=== PATIENT | female | born 1985 | race Caucasian/White ===

== ENCOUNTER 2016-06-16 07:44 | Inpatient (IN) | payer BC, OTHER ==
[~2016-06-16] VITALS: Ht 162.6 cm; Wt 56.7 kg
[~2016-06-16 07:44] MED LIST: ACYC400T PO; HYDR-3895 PO; Ibuprofen PO; LIDO35.4 TOP
--- NOTE | 2016-06-16 11:55 | NUR ---
Admission note Pt arrived on unit from home. Pt is refusing to give nurse information at this time. Pt states "I already told Dr Huntley everything, I just want to sleep". Pt weight is: 125 pounds. Pt states she is 5'4'' VS upon admission are: 84/46 HR 55 R 16 Temp: 97.6 SpO2: 99% on RA. Dr Huntley is aware, stated to ask pt if she would consent to IVF, pt refused and started "I just want to sleep". Explained benefits, pt continued to refuse. Gave pt bottles of water. Pt left to sleep in her bed. Bed is locked in a low position. Call light within reach, side rails up x 2. All needs addressed at this time. Addendum: 06/16/16 at 1603 by OLIVIER MCMAHON RN Information obtained from prior medical records, Dr Huntley's Note and from patient: Pt skin is intact, no open wounds noted. ENROLLMENT COORDINATOR completed body check. Urine collected for drug screen and showed + for opiates, benzo, methamphetamines, and marijuana. Pt continues to be sleepy and refusing/unable to answer questions d/t drowsiness. Pt reports NKA, full code, regular diet. Pt states she does not have PCP, denies hospitalizations within past 30 days. Substance use history, per Dr Huntley report. Xanax- uses 1-2mg PO on occasion, last use was 06/15/16 in the evening. Been using since 04/25/16. Heroin - pt reports She started to use heroin 2 yrs ago, with multiple attempts to stay sober, relapsed immediately after discharge from [facility] on 04/25/16. Pt reports using 0.5G-1G of heroin inh daily, last use was 06/14/16, unknown amount. Methamphetamine - per pt, she first tried methamphetamine 12 years ago, relapsed on 04/25/16. Has been using an unknown amount, last use 06/15/16. Pt reported smoking 1 pack of cigarettes a day. Treatment history: Pt refused to discuss. Pt has been to [facility] several times, pt did not go to treatment after her last admission. Pt reports hx of seizures in 2000. Pt did not bring any home meds and denies taking any medications at home No SI/HI reported. Pt initial COWS of [address] Huntley is aware of her admission and ordered PRN ativan and PRN subutex to manage her s/s of withdrawal.
[2016-06-16 12:00] VITALS: BP 84/46
[2016-06-16] MEDS ORDERED: diphenhydrAMINE 50 MG CAPSULE PO PRN (12:15)
[2016-06-16] MEDS ORDERED: MAGNESIUM HYDROXIDE 30 ML LIQUID UDC PO PRN (12:15)
[2016-06-16] MEDS ORDERED: ACETAMINOPHEN 325 MG TABLET PO PRN (12:15)
[2016-06-16] MEDS ORDERED: LORAZEPAM 2 MG/1 ML VIAL IM PRN (12:15)
[2016-06-16] MEDS ORDERED: LOPERAMIDE HCL 2 MG CAPSULE PO PRN ×2 (12:15)
[2016-06-16] MEDS ORDERED: CLONIDINE HCL 0.1 MG TABLET PO PRN (12:15)
[2016-06-16] MEDS ORDERED: MIRALAX 17 GM POWD.PACK PO PRN (12:15)
[2016-06-16] MEDS ORDERED: PROMETHAZINE HCL 25 MG/1 ML VIAL IM PRN (12:15)
[2016-06-16] MEDS ORDERED: BUPRENORPHINE HCL 2 MG TAB.SUBL SL PRN (12:15)
[2016-06-16] MEDS ORDERED: LORAZEPAM 1 MG TABLET PO PRN ×2 (12:15)
[2016-06-16] MEDS ORDERED: MAG HYDROX/AL HYDROX/SIMETH 30 ML LIQUID UDC PO PRN (12:15)
[2016-06-16] MEDS ORDERED: ONDANSETRON ODT 4 MG TAB.RAPDIS SL PRN (12:15)
[2016-06-16 12:25] LABS: *URINE HCG, QUAL NEGATIVE (NEGATIVE)
[2016-06-16 12:36] LABS: *AMPHETAMINE, URINE POSITIVE (NEGATIVE); *BARBITURATE, URINE NEGATIVE (NEGATIVE); *CANNABINOID, URINE POSITIVE (NEGATIVE); *COCCAINE, URINE NEGATIVE (NEGATIVE); *OPIATE, URINE POSITIVE (NEGATIVE); *PHENCYCLIDINE SCREEN,URINE NEGATIVE (NEGATIVE)
[2016-06-16] MEDS: METHOCARBAMOL 750 MG TABLET PO PRN (14:45)
--- NOTE | 2016-06-16 14:45 | NUR ---
PRN administration Pt refused labs, states "I want meds first". Pt BP is 92/46 HR 70. COWS 7, CIWA 8. Dr Huntley notified. Administered: vistaril, robaxin and bentyl for her anxiety, muscle aches and stomach cramps. Pt refused motrin. All other needs met, will continue to monitor pt.
[2016-06-16] MEDS: HYDROXYZINE PAMOATE 25 MG CAPSULE PO PRN ×2 (14:46→22:44)
[2016-06-16] MEDS: DICYCLOMINE HCL 20 MG TABLET PO PRN ×2 (14:46→22:44)
--- NOTE | 2016-06-16 15:45 | NUR ---
Reassessment Pt is sleeping in her bed, respirations are even and unlabored. Will continue to monitor pt.
[2016-06-16 16:00] VITALS: BP 85/44
--- NOTE | 2016-06-16 17:38 | NUR ---
MD communication Pt BP noted to be 85/44 HR 53 SpO2 99% on RA. Pt is easily awoken and was able to eat some snacks. Fluids encouraged. Dr Huntley is aware. NNO at this time.
--- NOTE | 2016-06-16 19:13 | NUR ---
End of shift note Pt was admitted for benzo and opiate withdrawal. Pt has a PMH of anxiety and a withdrawal induced seizure. Pt slept most of the shift. Pt had PRN robaxin, vistaril and bentyl with relief. Pt BP and HR remains low. Dr Huntley is aware with NNO. SBAR report endorsed to oncoming shift. Pt is on a regular diet, full code and has NKA. Bed is locked in a low position, call light within reach and side rails up x 2.
[2016-06-16 20:00] VITALS: BP 98/55
--- NOTE | 2016-06-16 20:00 | NUR ---
Start of Shift Pt is a 31 year old female admitted on 06/20/2016 for Benzo/Opiate withdrawal, PRN medications available. Pt relapsed on 05/05/2016, reported using Xanax 1-2mg PO occasionally, Heroin inh 0.5-1g/daily, Methamphetamine and Marijuana. PMH anxiety and seizure in 2000 withdrawal induced. Upon assessment, pt is arousable to touch, reports muscle aches throughout body, respirations even and unlabored, denies SOB/chest pain, denies n/v/d or constipation, skin flushed/warm , clammy and intact, bowel sounds active x4, abdomen soft. BP 98/55, pulse 64, respirations 14 , SpO2 97%, temp 98.4. Safety measures in place, call light within reach, side rails up x2, bed locked and in low position. Will continue to monitor.
[2016-06-16] MEDS: IBUPROFEN 600 MG TABLET PO PRN (22:44)
--- NOTE | 2016-06-16 22:44 | NUR ---
PRN Administration Pt reported abdominal cramping, body aches, anxiety. Pt stated, "I just want to sleep, please" Bentyl 20mg PRN, Motrin 600mg PRN, Vistaril 50mg PRN and Benadryl 50mg PRN administered. Safety measures in place, call light within reach, side rails up x2, bed locked and in low position. Will continue to monitor.
--- NOTE | 2016-06-16 23:44 | NUR ---
PRN Reassessment Pt is sleeping, respirations even and unlabored. Safety measures in place, call light within reach, side rails up x2, bed locked and in low position. Will continue to monitor.
[2016-06-17] VITALS: BP 107/55
--- NOTE | 2016-06-17 | NUR ---
Vital Signs BP 107/55, pulse 84, respirations 14, SpO2 98%, temp 98.1, no pain rated 0/10 CIWA/COWS deferred d/t pt sleeping, to asses while awake as ordered. Respirations even and unlabored, no s/s of distress noted. Safety measures in place, call light within reach, side rails up x2, bed locked and in low position. Will continue to monitor.
[2016-06-17 04:00] VITALS: BP 108/63
--- NOTE | 2016-06-17 04:00 | NUR ---
Vital Signs BP 108/63, pulse 56, respirations 12, SpO2 96%, temp 98.3, no pain rated 0/10 CIWA/COWS deferred d/t pt sleeping, to asses while awake as ordered. Respirations even and unlabored, no s/s of distress noted. Safety measures in place, call light within reach, side rails up x2, bed locked and in low position. Will continue to monitor.
--- NOTE | 2016-06-17 07:00 | NUR ---
End of Shift Pt is a 31 year old female admitted on 06/20/2016 for Benzo/Opiate withdrawal, PRN medications available. Pt relapsed on 05/05/2016, reported using Xanax 1-2mg PO occasionally, Heroin inh 0.5-1g/daily, Methamphetamine and Marijuana. PMH anxiety and seizure in 2000 withdrawal induced. During, pt arousable to touch, reported abdominal cramping, body aches, anxiety - Bentyl 20mg PRN, Motrin 600mg PRN, Vistaril 50mg PRN administered. Fluids encouraged, pt slept all throughout shift after administration of Benadryl 50mg PRN at 2244. COW 7 and CIWA 8. VS remain low, VS at 0400: BP 108/63, pulse 56 , respirations 12, SpO2 96%, temp 98.3. Pt slept for 7 hours, intake of 1000 ml PO and voids x2. Safety measures in place, call light within reach, side rails up x2, bed locked and in low position. Endorsed to day shift nurse.
--- NOTE | 2016-06-17 07:40 | NUR ---
START OF SHIFT Pt is a 31 yr old female, AA&Ox3. Pt was admitted on 06/16/16 for Benzo/Opiate dependence and is on PRN's for s/s of w/d. Pt is full code, regular diet and NKA. Pt reports PMH of Anxiety and Seizures. Pt received Bentyl PRN, Vistaril PRN, Motrin PRN and Benadryl PRN during the night. Medication was effective. Pt slet for 7 hrs. Last COWS score was 8 and CIWA score was 8. Pt is currently in bed resting with respirations even and unlabored. No acute distress noted. Skin is intact, warm and moist to touch. Pt denies any n/v at this time. Pt is on fall and seizure precautions. Bed kept in low position and locked with side rails up x2. Call light is within reach. Will continue to monitor.
[2016-06-17 08:00] VITALS: BP 91/50
[2016-06-17] MEDS ORDERED: TUBERCULIN,PURIF.PROT.DERIV. 5 TU/0.1 ML TEST ID ONE ×2 (09:00→21:00)
[2016-06-17] MEDS: METHOCARBAMOL 750 MG TABLET PO PRN ×2 (09:26→20:20)
[2016-06-17] MEDS: HYDROXYZINE PAMOATE 25 MG CAPSULE PO PRN ×2 (09:26→16:51)
[2016-06-17] MEDS: MULTIVITAMINS,THERAPEUTIC TABLET PO SCH (09:26)
[2016-06-17] MEDS: IBUPROFEN 600 MG TABLET PO PRN ×2 (09:26→16:51)
--- NOTE | 2016-06-17 09:26 | NUR ---
PRN MEDICATION/ REFUSED PPD Pt refused to have PPD done at this time and requested to be schedule at bedtime. Pt was offered CXR to rule out TB but refused CXR. MD is made aware with new order for Tuberculin at HS, noted and carried out. Pt c/o anxiety, muscle aching/spasms 09/01. Facial grimacing is observed. Vistaril 50mg PO PRN, Robaxin 750mg PO PRN, Motrin 600mg PO PRN was given as ordered. Medication abraham well. Encouraged increase fluid intake. Will continue to monitor.
--- NOTE | 2016-06-17 10:26 | NUR ---
PRN RE-ASSESSMENT Motrin PRN, Robaxin PRN, and Vistaril PRN was effective. Pt is in bed resting with respirations even and unlabored. No acute distress noted. Safety precautions observed. Call light is within reach. Will continue to monitor.
[2016-06-17 12:00] VITALS: BP 90/51
[2016-06-17 16:14] VITALS: BP 85/51
[2016-06-17] MEDS ORDERED: BUPRENORPHINE HCL 2 MG TAB.SUBL SL PRN (17:30)
[2016-06-17] MEDS ORDERED: LORAZEPAM 1 MG TABLET PO PRN ×2 (17:30)
--- NOTE | 2016-06-17 19:10 | NUR ---
END OF SHIFT Pt is a 31 yr old female, AA&Ox3. Pt was admitted on 06/16/16 for Benzo/Opiate dependence and is on PRN's for s/s of w/d. Pt is full code, regular diet and NKA. Pt reports PMH of Anxiety and Seizures. Pt has been observed with increase drowsiness throughout the day. Pt refused to attend any group sessions or activities. Pt did receive Motrin PRN at 0926 and 1651, Vistaril PRN 0926 and 1651 and Robaxin PRN at 0926 for anxiety and muscle aching/spasms. Medication was effective. Last COWS score was 2 and CIWA score was 2 at 1600. Pt c/o weakness and fatigue. No acute distress noted. VS are WNL. Skin is intact, warm and moist to touch. Pt denies any n/v at this time. Pt is on fall and seizure precautions. Bed kept in low position and locked with side rails up x2. Call light is within reach.
--- NOTE | 2016-06-17 19:30 | NUR ---
START OF SHIFT NOTE: Patient is a 31 y/o female admitted on 06/16/16 for Opiate & Benzo dependence. Patient with past medical history of Anxiety & Sieizure in 2001 d/t withdrawal. Patient is on a regular diet with no known food and drug allergies. Full Code status. Seizure and Fall precautions. Patient is on PRN Ativan & Subutex for withdrawals. Skin intact. Last COWS is 2 CIWA 2. Pt was given PRN Vistaril x2, Motrin x2 & Robaxin during day shift. Patient is alert & oriented x4. No shortness of breath noted. Respiration even & unlabored. Abdomen soft & non-distended. Bowel sounds active in all four quadrants. No nausea/vomiting noted. Patient complains of abdominal cramps, sweating, chills, 4/10 body aches and anxiety. No hallucinations noted. Patient denies SI/HI. No bilateral hand tremors noted. Safety precautions are in place. Bed locked in lowest position. Both side rails up. Call light within pts reach. Will continue to monitor patient.
[2016-06-17 20:00] VITALS: BP 92/51
[2016-06-17] MEDS: GABAPENTIN 300 MG CAPSULE PO SCH (20:20)
[2016-06-17] MEDS: DICYCLOMINE HCL 20 MG TABLET PO PRN (20:20)
--- NOTE | 2016-06-17 20:20 | NUR ---
PRN Bentyl & Robaxin Patient complains of 4/10 body aches & stomach cramps. PRN Bentyl & Robaxin given as ordered. Will continue to monitor.
[2016-06-17 20:36] LABS: HEMATOCRIT 43.7 % (37.0-47.0); HEMOGLOBIN 14.4 g/dL (12.0-16.0); MEAN CORPUSCULAR HEMOGLOBIN 28.2 uug (27.0-31.0); MEAN CORPUSCULAR HGB CONC 33 g/dL (32.0-37.0); MEAN CORPUSCULAR VOLUME 85.9 fL (81.0-99.0); PLATELET COUNT (AUTO) 343 K/uL (150-450); RED BLOOD CELL COUNT(AUTO) 5.09 MIL/uL (4.20-5.40); WHITE BLOOD COUNT (AUTO) 7.7 K/uL (4.0-11.2)
[2016-06-17] MEDS ORDERED: TRAZODONE 100 MG TABLET PO PRN (20:45)
[2016-06-17] MEDS ORDERED: TRAZODONE 100 MG TABLET ONE (20:48)
[2016-06-17 20:52] LABS: ETHANOL < 3 MG/DL (0-0)
[2016-06-17 20:54] LABS: ALANINE AMINOTRANSFERASE 12 U/L (14-59); ALKALINE PHOSPHATASE 52 U/L (50-136); ASPARTATE AMINOTRANSFERASE 14 U/L (15-37); BAND % (MANUAL) 1 % (0-10); BILIRUBIN,TOTAL 0.4 mg/dL (0.2-1.0); CARBON DIOXIDE 29 mmol/L (21-32); CHLORIDE 103 mmol/L (98-107); CREATININE 1.1 mg/dL (0.6-1.3); EOSINOPHILS % (MANUAL) 1 % (0-8); GFR 59 mL/min (>60); GLUCOSE 96 mg/dL (74-106); LYMPHOCYTES % (MANUAL) 30 % (20-40); MONOCYTES % (MANUAL) 6 % (2-10); NEUTROPHILS % (MANUAL) 62 % (42-75); PLATELET ESTIMATE ADEQUATE; POTASSIUM 3.4 mmol/L (3.5-5.1); SODIUM SERUM 141 mmol/L (136-145); TOTAL PROTEIN, SERUM 7.6 g/dL (6.4-8.2); UREA NITROGEN, BLOOD 13 mg/dL (7-18)
--- NOTE | 2016-06-17 20:58 | NUR ---
PRN Trazodone Patient complains of insomnia. PRN Trazodone given as ordered. Will monitor for effectiveness of medication.
[2016-06-17 21:05] LABS: THYROID STIMULATING HORMONE 0.366 mIU/mL (0.358-3.740)
[2016-06-17 21:09] LABS: HIV-1 p24 ANTIGEN NON REACTIVE (NONREACTIVE); HIV-1/2 ANTIBODY NON REACTIVE (NONREACTIVE)
--- NOTE | 2016-06-17 21:20 | NUR ---
Prn Reassessment Patient verbalized relief from body aches and stomach cramps. PRN medication effective. Pt lying in bed and appears comfortable. Will continue to monitor patient.
--- NOTE | 2016-06-17 21:58 | NUR ---
PRN trazodone reassessment Patient asleep in bed and appears comfortable. PRN medication effective. No shortness of breath noted. Will continue to monitor.
[2016-06-17] MEDS ORDERED: POTASSIUM CHLORIDE 10 MEQ CAPSULE.SA PO ONE (22:00)
[2016-06-17] MEDS ORDERED: POTASSIUM CHLORIDE 10 MEQ CAPSULE.SA ONE (22:07)
[2016-06-18] VITALS: BP 90/50
--- NOTE | 2016-06-18 07:10 | NUR ---
END OF SHIFT NOTE: Patient is a 31 y/o female admitted on 06/16/16 for Opiate & Benzo dependence. Patient with past medical history of Anxiety & Sieizure in 2000 d/t withdrawal. Patient is on a regular diet with no known food and drug allergies. Full Code status. Seizure and Fall precautions. Patient is on PRN Ativan & Subutex for withdrawals. Skin intact. Last COWS 4 CIWA 4. Pt was given PRN Robaxin, Bentyl and Trazodone and were effective. Potassium of 3.4 noted and was replaced as ordered. Pt remained stable and vitals remains WNL. Pt has been sleeping throughout the night. Pt slept for a total of 9 hours. Pt consumed 500ml of fluids. Voided 2x with no bowel movement. All needs attended & met. Safety precautions are in place. Will endorse pt to day shift nurse.
--- NOTE | 2016-06-18 07:45 | NUR ---
START OF SHIFT Pt is a 31 yr old female, AA&Ox3. Pt was admitted on 06/16/16 for Benzo/Opiate dependence and is on PRN's for s/s of w/d. Pt is full code, regular diet and NKA. Pt reports PMH of Anxiety and Seizures. Pt received Trazodone PRN, Robaxin PRN and Bentyl PRN during the night. Medication was effective. Pt slept for 9 hrs. Last COWS score was 4 and CIWA score was 4. Pt is currently in bed resting with respirations even and unlabored. No acute distress noted. Skin is intact, warm and moist to touch. Pt denies any n/v at this time. Pt is on fall and seizure precautions. Bed kept in low position and locked with side rails up x2. Call light is within reach. Will continue to monitor.
[2016-06-18 08:00] VITALS: BP 100/57
[2016-06-18] MEDS: GABAPENTIN 300 MG CAPSULE PO SCH ×3 (08:45→21:28)
[2016-06-18] MEDS: MULTIVITAMINS,THERAPEUTIC TABLET PO SCH (08:45)
[2016-06-18 12:00] VITALS: BP 105/61
[2016-06-18 16:00] VITALS: BP 106/67
--- NOTE | 2016-06-18 19:10 | NUR ---
END OF SHIFT Pt is a 31 yr old female, AA&Ox3. Pt was admitted on 06/16/16 for Benzo/Opiate dependence and is on PRN's for s/s of w/d. Pt is full code, regular diet and NKA. Pt reports PMH of Anxiety and Seizures. Pt has been observed with increase drowsiness throughout the day and remained in bed. Pt refused to attend any group sessions or activities. No PRN's were given during the day. Last COWS score was 2 and CIWA score was 2 at 1600. Pt c/o weakness and fatigue. No acute distress noted. VS are WNL. Skin is intact, warm and moist to touch. Pt denies any n/v at this time. Pt is on fall and seizure precautions. Bed kept in low position and locked with side rails up x2. Call light is within reach.
[2016-06-18] MEDS ORDERED: BUPRENORPHINE HCL 2 MG TAB.SUBL SL ONE ×2 (19:15→22:00)
[2016-06-18 20:00] VITALS: BP 116/74
--- NOTE | 2016-06-18 20:00 | NUR ---
START OF SHIFT NOTE PATIENT IS A 31 YEAR OLD FEMALE, ADMITTED ON 06/16/16 FOR BENZO/OPIATE WITHDRAWAL. PATIENT IS FULL CODE, REGULAR DIET AND NO KNOWN ALLERGY. PATIENT REPORTS PMH OF ANXIETY AND SEIZURE 2000 (W/D). PATIENT IS ON XANAX 1-2 MG PO OCCASIONALLY, HEROIN 0.5-1 GRAM INHALATION DAILY AND METH UNKNOWN AMOUNT . PATIENT RELAPSED 05/05/16. PATIENT IS ON PRN ATIVAN. PATIENT WILL START SUBUTEX TODAY AT 1915 AND 2100, THEN TOMORROW AT 0900. PATIENT DID NOT REQUIRE ANY PRN MEDICATION DURING THE DAY. LAST CIWA 2 AND COWS 2. PATIENT IN ROOM, RESTING, PATIENT REPORTS SHE'S TIRED, ANXIOUS, STUFFY NOSE, ABDOMINAL CRAMPING, NO N/V. PATIENT STATES SHE ATTENDED GROUPS BUT UNABLE TO STAY DUE TO HER WITHDRAWAL SYMPTOMS . SAFETY MEASURES IN PLACE. CALL LIGHT IN REACH. WILL CONTINUE TO MONITOR.
[2016-06-18] MEDS: QUETIAPINE FUMARATE 100 MG TABLET PO SCH (21:28)
[2016-06-19] VITALS: BP 106/72
--- NOTE | 2016-06-19 04:00 | NUR ---
VS/CIWA/COWS PATIENT PREVIOUSLY REQUESTED NOT TO WAKE HER UP FOR VS . UNABLE TO COMPLETE CIWA/COWS ASSESSMENTS. RESPIRATION EVEN AND UNLABORED RR 14. NO S/S OF DISTRESS. SAFETY MEASURES IN PLACE. CALL LIGHT IN REACH. WILL CONTINUE TO MONITOR.
--- NOTE | 2016-06-19 07:37 | NUR ---
END OF SHIFT NOTE PATIENT IS A 31 YEAR OLD FEMALE, ADMITTED ON 06/16/16 FOR BENZO/OPIATE WITHDRAWAL. PATIENT IS FULL CODE, REGULAR DIET AND NO KNOWN ALLERGY. PATIENT REPORTS PMH OF ANXIETY AND SEIZURE 2000 (W/D). PATIENT IS ON XANAX 1-2 MG PO OCCASIONALLY, HEROIN 0.5-1 GRAM INHALATION DAILY AND METH UNKNOWN AMOUNT . PATIENT RELAPSED 05/05/16. PATIENT IS ON PRN ATIVAN. PATIENT WAS GIVEN SUBUTEX AT 1915 AND 2100, TOLERATED AND THEN TODAY AT 0900. PATIENT IN ROOM, RESTING, PATIENT REPORTS SHE'S TIRED, ANXIOUS, STUFFY NOSE, ABDOMINAL CRAMPING, NO N/V. PATIENT STATES SHE ATTENDED GROUPS BUT UNABLE TO STAY DUE TO HER WITHDRAWAL SYMPTOMS . PATIENT DID NOT REQUIRE ANY PRN MEDICATION DURING SHIFT. PATIENT COMPLIANT WITH MEDICATION AND TREATMENT PLAN. SAFETY MEASURES IN PLACE. CALL LIGHT IN REACH. WILL CONTINUE TO MONITOR. SLEPT 5 HOURS. FLUID INTAKE 500 ML. VOIDED X 1 . NO BM. LAST COWS 1 AND CIWA 1.
--- NOTE | 2016-06-19 07:39 | NUR ---
Start of shift Patient is a 31 year old female, admitted on 06/16/16 for benzo/opiate withdrawal. Patient is full code, on a regular diet denies any food or drug allergies. Patient reports PMH of anxiety and seizure 2000 (w/d). Patient relapsed 05/05/16. Patient is on is placed on a Modified 3 day Subutex taper, tolerating well. Patient did not require any PRN medication during the steward/stewardess night. Pts last COWS score was a 1 and her CIWA was a 1 taken at 1999. Pt slept a total of 5 hours last night. Safety measures in place. Call light in reach, bed in lowest locked position, will continue to monitor and provide care.
[2016-06-19 08:00] VITALS: BP 100/68
[2016-06-19] MEDS: GABAPENTIN 300 MG CAPSULE PO SCH ×3 (09:00→21:00)
[2016-06-19] MEDS ORDERED: BUPRENORPHINE HCL 2 MG TAB.SUBL SL SCH (09:00)
[2016-06-19] MEDS: MULTIVITAMINS,THERAPEUTIC TABLET PO SCH (09:55)
[2016-06-19 12:00] VITALS: BP 115/70
[2016-06-19] MEDS: ESCITALOPRAM OXALATE 10 MG TABLET PO SCH (13:41)
[2016-06-19 16:00] VITALS: BP 100/62
--- NOTE | 2016-06-19 19:14 | NUR ---
End of shift Patient is a 31 year old female, admitted on 06/16/16 for benzo/opiate withdrawal. Patient is full code, on a regular diet denies any food or drug allergies. Patient reports PMH of anxiety and seizure 2000 (w/d). Patient relapsed 05/05/16. Patient is on is placed on a Modified 3 day Subutex taper, tolerating well. Patient did not require nor received any PRN medications during my shift. Pts last COWS score was a 4 and her CIWA was a 4 taken at 1600. Pt was encouraged to participate in groups and activities.Pt participated in some activities and groups. Pt stated that the medications are working well at controlling the withdrawal symptoms, evidenced by low assessment scores during the day ranging from 4-2. Pt ate most of her meals. Pt remains compliant with the treatment plan. Pts vital signs within normal limits, A/Ox4, denies chest pain. Respirations even unlabored, lungs clear upon auscultation abdomen soft and non- distended. Pt denies nausea, vomiting and diarrhea. Pt total fluid intake was 2623ml with 4 voids and 1 stool. Safety measures in place, call light within reach. All pertinent information discussed with welder 2nd shift, endorsement given to welder 2nd shift nurse.
[2016-06-19 20:00] VITALS: BP 98/55
--- NOTE | 2016-06-19 20:00 | NUR ---
START OF SHIFT NOTE PATIENT IS A 31 YEAR OLD FEMALE , ADMITTED FOR BENZO/OPATE WITHDRAWAL. PATIENT IS FULL CODE, REGULAR DIET AND NO KNOWN ALLERGY. PATIENT WAS PLACED ON 2 DAYS SUBUTEX TAPER, COMPLETED. PATIENT IS TO BE DISCHARGE TOMORROW. PATIENT DID NOT REQUIRE ANY PRN MEDICATION DURING THE DAY. PER DAY SHIFT NURSE PATIENT WAS STARTED ON LEXAPRO TODAY. ON FALL /SEIZURE PRECAUTION. PATIENT ALERT AND ORIENTED X 4. RESPIRATION EVEN AND UNLABORED. PATIENT SHE'S ALRIGHT AND SHE'S READY TO GET DISCHARGE. NO N/V. DENIES ANY PAIN. SAFETY MEASURES IN PLACE. CALL LIGHT IN REACH. WILL CONTINUE TO MONITOR.
[2016-06-19] MEDS: QUETIAPINE FUMARATE 100 MG TABLET PO SCH (20:51)
--- NOTE | 2016-06-19 21:28 | NUR ---
REFUSED NEURONTIN PATIENT REFUSED NEURONTIN, EDUCATED ON RISKS/BENEFITS. WILL CONTINUE TO MONITOR.
[2016-06-19] MEDS ORDERED: Gabapentin PO (21:56)
[2016-06-19] MEDS ORDERED: CLON0.1T14 PO (21:56)
[2016-06-19] MEDS ORDERED: METH-33 PO (21:56)
[2016-06-19] MEDS ORDERED: HYDR-3895 PO (21:56)
[2016-06-19] MEDS ORDERED: Ibuprofen PO (21:56)
[2016-06-19] MEDS ORDERED: DICY20TA28 PO (21:56)
--- NOTE | 2016-06-20 | NUR ---
COWS/CIWA/VS PATIENT REFUSED VS. COWS /CIWA UNABLE TO COMPLETE. RESPIRATION EVEN AND UNLABORED. RR 14. SAFETY MEASURES IN PLACE. CALL LIGHT IN REACH. WILL CONTINUE TO MONITOR
--- NOTE | 2016-06-20 04:00 | NUR ---
COWS/CIWA/VS PATIENT PREVIOUSLY REQUESTED NOT TO WAKE HER UP FOR VS. PATIENT WANTS TO SLEEP. COWS /CIWA UNABLE TO COMPLETE. RESPIRATION EVEN AND UNLABORED. RR 15. SAFETY MEASURES IN PLACE. CALL LIGHT IN REACH. WILL CONTINUE TO MONITOR
--- NOTE | 2016-06-20 07:27 | NUR ---
END OF SHIFT NOTE PATIENT IS A 31 YEAR OLD FEMALE , ADMITTED FOR BENZO/OPATE WITHDRAWAL. PATIENT IS FULL CODE, REGULAR DIET AND NO KNOWN ALLERGY. PATIENT WAS PLACED ON 2 DAYS SUBUTEX TAPER, COMPLETED. PATIENT IS TO BE DISCHARGE TODAY . ON FALL /SEIZURE PRECAUTION. PATIENT ALERT AND ORIENTED X 4. RESPIRATION EVEN AND UNLABORED. PATIENT SHE'S ALRIGHT AND SHE'S READY TO GET DISCHARGE. NO N/V. DENIES ANY PAIN. PATIENT DID NOT REQUIRE ANY PRN MEDICATION DURING SHIFT. PATIENT REFUSED TO ATAKE NEURONTIN AT 2100, EDUCATE ON RISKS/BENEFITS. SAFETY MEASURES IN PLACE. CALL LIGHT IN REACH. WILL CONTINUE TO MONITOR. SLEPT 7 HOURS. FLUID INTAKE 1,296 ML. VOIDED X 2.NO BM.
--- NOTE | 2016-06-20 07:29 | NUR ---
Start of shift Patient is a 31 year old female, admitted on 06/16/16 for benzo/opiate withdrawal. Patient is full code, on a regular diet denies any food or drug allergies. Patient reports PMH of anxiety and seizure 2000 (w/d). Patient relapsed 05/05/16. Patient is on is placed on a Modified 3 day Subutex taper, tolerating well. Patient did not require any PRN medication during the geophysics scientist. Pt's last COWS score was a 0 and her CIWA was a 0 taken at 1999. Pt slept a total of 7 hours last night. Pt to be discharged today. Safety measures in place. Call light in reach, bed in lowest locked position, will continue to monitor and provide care.
[2016-06-20 08:00] VITALS: BP 101/60
[2016-06-20 08:24] LABS: *AMPHETAMINE, URINE NEGATIVE (NEGATIVE); *BARBITURATE, URINE NEGATIVE (NEGATIVE); *CANNABINOID, URINE POSITIVE (NEGATIVE); *COCCAINE, URINE NEGATIVE (NEGATIVE); *OPIATE, URINE POSITIVE (NEGATIVE); *PHENCYCLIDINE SCREEN,URINE NEGATIVE (NEGATIVE)
[2016-06-20] MEDS: GABAPENTIN 300 MG CAPSULE PO SCH (09:21)
[2016-06-20] MEDS: ESCITALOPRAM OXALATE 10 MG TABLET PO SCH (09:22)
[2016-06-20] MEDS: MULTIVITAMINS,THERAPEUTIC TABLET PO SCH (09:22)
--- NOTE | 2016-06-20 09:40 | NUR ---
DISCHARGE NOTE Pt is in stable condition. Vitals WNL, Pt alert and oriented x4, skin intact, Pt denies any SI/HI. All discharge paperwork completed dated and signed. Pt educated about discharge instructions, what to do after discharge when to contact MD as well as the s/s reportable to MD, pt verbalized understanding. Pt was provided with all of his discharge paperwork. Pt's last COWS:0 and CIWA:0 taken at 0800. Pt was discharged from [facility] on 06/20/16 at 0933. Pt left the building with all of his belongings, prescriptions pt did not bring any medications. MD and psychiatrist have been contacted notified and aware of pt's d/c.
[2016-06-21 08:05] LABS: HEPATITIS B SURFACE AG Negative
[2016-06-21 08:06] LABS: HEPATITIS B CORE AB, IgM Negative
== END 2016-06-20 09:33 | disposition other institution (70) | DRG 895 ==
LOC: SRC 10:18
PROVIDERS: ADMIT Internal Medicine; ATTEND Internal Medicine
DX: F11.23 Opioid dependence with withdrawal (principal); F15.23 Other stimulant dependence with withdrawal; F41.9 Anxiety disorder, unspecified; F17.210 Nicotine dependence, cigarettes, uncomplicated; F12.90 Cannabis use, unspecified, uncomplicated; E87.6 Hypokalemia; F13.10 Sedative, hypnotic or anxiolytic abuse, uncomplicated
CPT/HCPCS: 36415; 70030-TC; 80307; 80324; 80346; 80349; 80361; 83735; 84443; 84703; 85025; 86580; 86592; 86705; 86803; 87340; 87806; 93005; A4663; G6040-TC; Q0163

== ENCOUNTER 2016-11-15 11:36 | Inpatient (IN) | payer BC, OTHER ==
[~2016-11-15] VITALS: Ht 162.6 cm; Wt 55.8 kg
[~2016-11-15 11:36] MED LIST changes: -ACYC400T PO; +CLON0.1T14 PO; +DICY20TA28 PO; +Gabapentin PO; -LIDO35.4 TOP; +METH-33 PO
--- NOTE | 2016-11-15 11:53 | NUR ---
PRE ADMISSION 31 Year old female at intake office, alert and oriented x4, reports she is here to detox off of heroin and methamphetamine. Patient reports she lives in [facility] with boyfriend. bp: 104-61 heart rate: 75, t: 97.8 r: 16 o2 sat: 97% room air. Patient is alert and oriented x4, noted yawning and reports she feels tired. Patient is able to make needs known. Patient is verbally responsive. patient denies any past medical history, denies any history of seizures, denies any food or drug allergies. Patient was educated regarding unit policies with good verbal understanding. MD was notified.
[2016-11-15 12:08] VITALS: BP 104/61
[2016-11-15] MEDS ORDERED: DICYCLOMINE HCL 20 MG TABLET PO PRN (13:00)
[2016-11-15] MEDS ORDERED: ACETAMINOPHEN 325 MG TABLET PO PRN (13:00)
[2016-11-15] MEDS ORDERED: LOPERAMIDE HCL 2 MG CAPSULE PO PRN ×2 (13:00)
[2016-11-15] MEDS ORDERED: BUPRENORPHINE HCL 2 MG TAB.SUBL SL PRN (13:00)
[2016-11-15] MEDS ORDERED: IBUPROFEN 600 MG TABLET PO PRN (13:00)
[2016-11-15] MEDS ORDERED: ONDANSETRON 4 MG/2 ML VIAL IM PRN (13:00)
[2016-11-15] MEDS ORDERED: LORAZEPAM 1 MG TABLET PO PRN ×2 (13:00)
[2016-11-15] MEDS ORDERED: MAG HYDROX/AL HYDROX/SIMETH 30 ML LIQUID UDC PO PRN (13:00)
[2016-11-15] MEDS ORDERED: MIRALAX 17 GM POWD.PACK PO PRN (13:00)
[2016-11-15] MEDS ORDERED: LORAZEPAM 2 MG/1 ML VIAL IM PRN (13:00)
[2016-11-15] MEDS ORDERED: CLONIDINE HCL 0.1 MG TABLET PO PRN (13:00)
[2016-11-15] MEDS ORDERED: METHOCARBAMOL 750 MG TABLET PO PRN (13:00)
[2016-11-15] MEDS ORDERED: MAGNESIUM HYDROXIDE 30 ML LIQUID UDC PO PRN (13:00)
[2016-11-15] MEDS ORDERED: THIAMINE HCL 200 MG/2 ML VIAL IM ONE (13:00)
[2016-11-15] MEDS ORDERED: HYDROXYZINE PAMOATE 25 MG CAPSULE PO PRN (13:00)
[2016-11-15] MEDS ORDERED: ONDANSETRON ODT 4 MG TAB.RAPDIS SL PRN (13:00)
[2016-11-15] MEDS ORDERED: diphenhydrAMINE 50 MG CAPSULE PO PRN (13:00)
--- NOTE | 2016-11-15 13:00 | NUR ---
ADMISSION Admitted a 31 year old female from [facility]. Patient arrived to [facility] unit at 1205. Body assessment completed, noted with intact skin, no bruising, breakdown or discoloration noted. Patients body search completed by female FUNERAL ARRANGEMENT DIRECTOR, no contraband found. Patient is 5 feet 4 inches and weights 123 lbs. Patients bp: 104/61 hr: 75 t: 97.8, r: 16 o2 sat: 97% room air. Patient denies any food or drug allergies. Patient reports she does not have a primary care physician. Patient noted with increase drowsiness is alert and oriented x4. Pupils are equal and reactive to light, 3mm. Patient denies any hospitalization or being in group home in last 30 days. Patient reports she relapsed 1 month ago. Has been to multiple treatment centers, including [facility] four times. Patient reports she cannot recall the treatment centers she has been to, as per EMR, patient has been to [facility] 4 times, with most recent admission here on: 06/16/2016. As per patient she relapsed one month ago, since then patient with substance use history of: 1. heroin 0.5-1 gram daily via IV/smoked for one month, last used 0.25gram on 11/14/2016 at 1300. 2. Methamphetamine 0.25gram once a week for one month, last used few hits on 11/14/2016 at 1300. Patient denies medical/psychiatric history. Patient denies taking any home medications. Patient denies history of seizures. Patient denies any family medical history of substance abuse. Patient is alert and oriented x4. , no extremity weakness or sensory deficit, respirations are even and unlabored, no SOB, lungs clear upon auscultation. Denies any NVD. Abdomen is soft and non distended, bowel sounds heard in all quadrants. Safety measures in lace. Call light kept with in reach. Dr. Ariza notified of new admission, per MD he will input admitting orders. Safety measures in place. Will continue to monitor.
[2016-11-15 14:04] LABS: *AMPHETAMINE, URINE POSITIVE (NEGATIVE); *BARBITURATE, URINE NEGATIVE (NEGATIVE); *CANNABINOID, URINE POSITIVE (NEGATIVE); *COCCAINE, URINE NEGATIVE (NEGATIVE); *OPIATE, URINE POSITIVE (NEGATIVE); *PHENCYCLIDINE SCREEN,URINE NEGATIVE (NEGATIVE)
[2016-11-15 15:28] LABS: *URINE HCG, QUAL NEGATIVE (NEGATIVE)
[2016-11-15 17:20] VITALS: BP 90/60
[2016-11-15 17:46] LABS: BASOPHILS % (AUTO) 0.3 % (0.0-2.0); EOSINOPHILS % (AUTO) 0.4 % (0.0-7.0); HEMOGLOBIN 13.9 G/DL (12.0-16.0); LYMPHOCYTES # (AUTO) 2.2 K/UL (0.8-4.8); LYMPHOCYTES % (AUTO) 34.3 % (20.5-51.5); MEAN CORPUSCULAR HEMOGLOBIN 29.6 UUG (27.0-31.0); MEAN CORPUSCULAR HGB CONC 34 g/dL (32.0-37.0); MEAN CORPUSCULAR VOLUME 87.4 FL (81.0-99.0); MONOCYTES # (AUTO) 0.3 K/UL (0.1-1.30); MONOCYTES % (AUTO) 4.2 % (0.0-11.0); NEUTROPHILS # (AUTO) 3.8 K/UL (1.8-8.9); NEUTROPHILS % (AUTO) 60.8 % (38.5-71.5); PLATELET COUNT (AUTO) 313 K/UL (150-450); RED BLOOD CELL COUNT(AUTO) 4.69 MIL/UL (4.2-5.4); WHITE BLOOD COUNT (AUTO) 6.3 K/UL (4.0-11.2)
[2016-11-15 17:48] LABS: ETHANOL < 3 MG/DL (0-0)
[2016-11-15 17:53] LABS: ALANINE AMINOTRANSFERASE 17 U/L (14-59); ALKALINE PHOSPHATASE 49 U/L (50-136); ASPARTATE AMINOTRANSFERASE 15 U/L (15-37); BILIRUBIN,TOTAL 0.5 mg/dL (0.2-1.0); CARBON DIOXIDE 29 mmol/L (21-32); CHLORIDE 104 mmol/L (98-107); CREATININE 0.7 mg/dL (0.6-1.3); GLUCOSE 89 mg/dL (74-106); POTASSIUM 3.7 mmol/L (3.5-5.1); TOTAL PROTEIN, SERUM 7.4 g/dL (6.4-8.2); UREA NITROGEN, BLOOD 14 mg/dL (7-18)
--- NOTE | 2016-11-15 18:53 | NUR ---
END OF SHIFT Patient admitted today during shift, patient is alert and oriented x4, vital signs were stable during shift. During shift patient in bed with eyes closed and respirations even and unlabored. Patient is under close observation. Vital signs were stable. Patient compliant with therapeutic plan of care. Patient was administered no PRN medications during shift. Safety measures in place. Call light kept with in reach, will continue to monitor closely. Safety measures in place.
[2016-11-15 20:00] VITALS: BP 100/61
--- NOTE | 2016-11-15 20:00 | NUR ---
Start of Shift Pt is a 31 year old female admitted for Opiate dependence, placed on 4 day Subutex taper to be started tomorrow. Pt reported use of Heroin IV/INH 0.5gm - 1gm/daily x1 month and Methamphetamine 0.25gm every week x1 month. Pt denies any past medical history. NKA, regular diet, fall precautions and full code. Pt is in room, sleeping, arousable, respirations even/unlabored. Pt is under close observation. No reports of distress, safety measures in place, call light within reach, side rails up x2, bed locked in low position. Will continue to monitor.
[2016-11-16] VITALS: BP 106/58
--- NOTE | 2016-11-16 | NUR ---
Vital Signs BP 106/58, pulse 68, resp 16, SpO2 97% room air, temp 97.9, no reports of pain COWS deferred d/t pt sleeping, to assess while pt is awake as ordered. Safety measures in place. Will continue to monitor.
[2016-11-16 04:00] VITALS: BP 92/57
--- NOTE | 2016-11-16 04:00 | NUR ---
Vital Signs BP 92/57, pulse 59, resp 16, SpO2 97% room air, temp 98, no reports of pain COWS deferred d/t pt sleeping, to assess while pt is awake as ordered. Safety measures in place. Will continue to monitor.
--- NOTE | 2016-11-16 07:00 | NUR ---
End of Shift Pt is a 31 year old female admitted for Opiate dependence, placedon 4 day Subutex taper to be started today. Pt reported use of Heroin IV/INH 0.5gm - 1gm/daily x1 month and Methamphetamine 0.25gm every week x1 month. Pt denies any past medical history. NKA, regular diet, fall precautions and full code. During shift, Pt remained in room, sleeping, arousable, respirations even/unlabored, no reports of distress. Pt under close observation. No PRN medications administered. Pt slept for 9 hours, intake of 350ml PO, voids x2 and stool x0. Safety measures in place, call light within reach, side rails up x2, bed locked and in low position. Endorsed to day shift nurse.
--- NOTE | 2016-11-16 07:10 | NUR ---
Start of Shift Endorsement received from nightshift nurse. Pt is a 31 y/o female admitted for Heroin dependence. Pt has been placed on a 4 day Subutex taper set to start on 11/16/16. Pt did not receive any PRN medications. Pt reports sleeping 9 hours. PT will be farther evaluated prior to PT is mildly withdrawing AEB COWS 4 at 1999. VS WNL with a BP at 92/60. Full Code. . PT is alert and oriented x4. Pt is in STABLE condition at this time. Remains compliant with medication and diet regimen. All needs have been met, All safety measures in place per hospital policy. Bed in lowest position, side rails up x2, call-light within reach. Will continue to monitor
[2016-11-16 08:00] VITALS: BP 107/59
[2016-11-16] MEDS ORDERED: THIAMINE HCL 100 MG TABLET PO SCH (09:00)
[2016-11-16] MEDS ORDERED: TUBERCULIN,PURIF.PROT.DERIV. 5 TU/0.1 ML TEST ID ONE (09:00)
[2016-11-16] MEDS ORDERED: 4 DAY TAPER BUPRENORPHINE -SERENITY PROTOCOL SL PRN (09:00)
[2016-11-16] MEDS: BUPRENORPHINE HCL 2 MG TAB.SUBL SL SCH ×4 (09:00→20:58)
[2016-11-16] MEDS: FOLIC ACID 1 MG TABLET PO SCH (09:30)
[2016-11-16] MEDS: DOCUSATE SODIUM 250 MG CAPSULE PO SCH (09:30)
[2016-11-16] MEDS: MULTIVITAMINS,THERAPEUTIC TABLET PO SCH (09:31)
[2016-11-16 12:00] VITALS: BP 90/49
[2016-11-16 16:00] VITALS: BP 96/67
--- NOTE | 2016-11-16 19:17 | NUR ---
End of Shift Endorsement given to nightshift nurse. Pt is a 31 y/o female admitted for Heroin dependence. Pt has been placed on a 4 day Subutex taper that begun at 1600. Pt presented with COWS 18 at the start of her taper. PT participated in groups and activities. Pt did not receive any PRN medications. . PT moderately withdrawing AEB COWS 11 at 1600. Educated Pt on S/E of medications and diet regimen. VS WNL. Full Code. Intake: 2000ml, Void x3, BM x1. PT is alert and oriented x4. Pt is in STABLE condition at this time. Remains compliant with medication and diet regimen. All needs have been met, All safety measures in place per hospital policy. Bed in lowest position, side rails up x2, call-light within reach. Will continue to monitor
[2016-11-16 20:00] VITALS: BP 114/66
--- NOTE | 2016-11-16 20:00 | NUR ---
Start of Shift Pt is a 31 year old female admitted for Opiate dependence, placed on 4 day Subutex taper to be started tomorrow. Pt reported use of Heroin IV/INH 0.5gm - 1gm/daily x1 month and Methamphetamine 0.25gm every week x1 month. Pt denies any past medical history. NKA, regular diet, fall precautions and full code. Upon assessment, pt reports anxiety, reports muscle aches, nasal stuffiness noted, skin flushed, respirations even/unlabored, denies SOB/chest pain, denies n/v/d. Medications due. Safety measures in place, call light within reach side rails up x2, bed locked and in low position. Will continue to monitor.
[2016-11-17] VITALS: BP 102/68
--- NOTE | 2016-11-17 | NUR ---
Vital Signs BP 102/68, pulse 84, resp 14, SpO2 99% room air, temp 97.6, no reports of pain COWS deferred d/t pt sleeping, to assess while pt is awake as ordered. Safety measures in place. Will continue to monitor.
--- NOTE | 2016-11-17 04:00 | NUR ---
Pt refused to be woken up for 0400 Vital Signs COWS deferred d/t pt sleeping to assess while pt is awake as ordered. Safety measures in place. Will continue to monitor.
[2016-11-17 04:08] LABS: HEPATITIS B SURFACE AG Negative (Negative)
--- NOTE | 2016-11-17 07:00 | NUR ---
End of Shift Pt is a 31 year old female admitted for Opiate dependence, placed on 4 day Subutex taper to be started tomorrow. Pt reported use of Heroin IV/INH 0.5gm - 1gm/daily x1 month and Methamphetamine 0.25gm every week x1 month. Pt denies any past medical history. NKA, regular diet, fall precautions and full code. During shift, pt reported anxiety, reported muscle aches, nasal stuffiness noted, skin flushed scheduled taper medication administered, COWS 8. No PRN medications administered. Pt slept for 6 hours, intake of 1151 ml PO, voids x3 and stool x2. Safety measures in place, call light within reach, side rails up x2, bed locked and in low position. Endorsed to day shift nurse.
--- NOTE | 2016-11-17 07:09 | NUR ---
Start of Shift Endorsement received from nightshift nurse. Pt is a 31 y/o female admitted for Heroin dependence. Pt has been placed on a 4 day Subutex taper. Pt is tolerating the taper and moderately withdrawing AEB COWS 6 at midnight. Pt did not receive any PRN medications. Pt reports sleeping 6 hours. Pt presents with VS WNL with a BP. Full Code. PT is alert and oriented x4. Pt is in STABLE condition at this time. Remains compliant with medication and diet regimen. All needs have been met, All safety measures in place per hospital policy. Bed in lowest position, side rails up x2, call-light within reach. Will continue to monitor
[2016-11-17 08:00] VITALS: BP 94/61
[2016-11-17] MEDS ORDERED: BUPRENORPHINE HCL 2 MG TAB.SUBL SL SCH (09:00)
[2016-11-17] MEDS: DOCUSATE SODIUM 250 MG CAPSULE PO SCH (09:20)
[2016-11-17] MEDS: FOLIC ACID 1 MG TABLET PO SCH (09:20)
[2016-11-17] MEDS: MULTIVITAMINS,THERAPEUTIC TABLET PO SCH (09:20)
[2016-11-17 12:00] VITALS: BP 80/52
[2016-11-17] MEDS: BUPRENORPHINE HCL 2 MG TAB.SUBL SL SCH ×2 (15:21→21:34)
[2016-11-17 16:00] VITALS: BP 107/60
--- NOTE | 2016-11-17 18:57 | NUR ---
End of Shift Endorsement given to nightshift nurse. Pt is a 31 y/o female admitted for Heroin dependence. Pt has been placed on a 4 day Subutex taper. Pt is tolerating the taper and moderately withdrawing AEB COWS 6 at 1600. Pt did not receive any PRN medications. Pt participated in groups and activities. Educated pt on dangerous of relapse and importance of seeking help as soon as possible if it does happen. Educated pt on S/E of medications and diet regimen. Encouraged pt to develop coping mechanisms to help prevent future relapse. Intake: 2296ml, Void x3, BM x1. Full Code. PT is alert and oriented x4. Pt is in STABLE condition at this time. Remains compliant with medication and diet regimen. All needs have been met, All safety measures in place per hospital policy. Bed in lowest position, side rails up x2, call-light within reach. Will continue to monitor
--- NOTE | 2016-11-17 19:30 | NUR ---
START OF SHIFT NOTE 317 Pt endorsed from day shift nurse. 31 y/o female admitted for Heroin dependence. Pt has been placed on a 4 day Subutex taper set to start on 11/16/16. Pt is A/O x 4. Pt v/s are stable at change of shift. All safety measures in place per hospital policy. Bed in lowest position, side rails up x2, call-light within reach. Will continue to monitor.
[2016-11-17 20:00] VITALS: BP 101/60
--- NOTE | 2016-11-18 | NUR ---
MIDNIGHT VITALS Pt declined vital signs
[2016-11-18 04:00] VITALS: BP 98/62
--- NOTE | 2016-11-18 07:02 | NUR ---
END OF SHIFT NOTE 317 31 y/o female admitted for Heroin dependence. Pt has been placed on a 4 day Subutex taper set to start on 11/16/16. Pt is A/O x 4. No PRN meds were administered on this shift . Pt remained compliant with medication regimen and treatment plan. Intake total for shift was 1268ml, and voided 3 times. Last COWS score was 6 All safety measures in place per hospital policy. Bed in lowest position, side rails up x2, call-light within reach. Pt is resting comfortably.
--- NOTE | 2016-11-18 07:55 | NUR ---
START OF SHIFT Rcvd endorsement from ongoing nurse, client is in room, lying in bed, a/o x4, she presents with anxious mood, flat affect. She reports stomach cramps, chills and fatigue. Client denies any N/V/D or SI/HI. Encouraged client to increase fluid intake to facilitate detox. Encourage client to attend group therapy for skills to maintain sobriety. Client is a 31 yo female admitted for withdrawal from opiates. She is on 4 day Subutex taper, tolerating well. Last COWS 6 @ 0400. She reports NKA, full code, regular diet. Client had an uneventful night, slept 6 hrs. Client denies any history of withdrawal-induced seizure. She is on universal precautions. Call light within reach. Side rails up x2, bed locked and in low position.
[2016-11-18 08:55] VITALS: BP 103/61
--- NOTE | 2016-11-18 09:31 | NUR ---
Zero induration noted on L forearm TB site.
[2016-11-18] MEDS: DOCUSATE SODIUM 250 MG CAPSULE PO SCH (09:54)
[2016-11-18] MEDS: BUPRENORPHINE HCL 2 MG TAB.SUBL SL SCH ×3 (09:55→20:56)
[2016-11-18] MEDS: MULTIVITAMINS,THERAPEUTIC TABLET PO SCH (09:55)
[2016-11-18] MEDS: FOLIC ACID 1 MG TABLET PO SCH (09:55)
[2016-11-18 12:39] VITALS: BP 103/59
[2016-11-18 16:55] VITALS: BP 105/57
--- NOTE | 2016-11-18 18:55 | NUR ---
END OF SHIFT Endorsed client to incoming nurse, client is a 31 yo female admitted for withdrawal from opiates. She is on 4 day Subutex taper, tolerating well. Last COWS 3 @ 1600. She reports NKA, full code, regular diet. Client compliant with medication regime and group therapy. Adequate PO fluid intake 1565mL, void x 4. Stool x 1. Client denies any history of withdrawal-induced seizure. She is on universal precautions. Call light within reach. Side rails up x2, bed locked and in low position.
--- NOTE | 2016-11-18 19:45 | NUR ---
START OF SHIFT NOTE 317 Client is a 31 yo female admitted for withdrawal from opiates. She is on 4 day Subutex taper, tolerating well. Pt did not receive any PRN medications. PT is alert and oriented x4. Pt is in STABLE condition at this time. Remains compliant with medication and diet regimen. All needs have been met, All safety measures in place per hospital policy. Bed in lowest position, side rails up x2, call-light within reach. Will continue to monitor
[2016-11-18 20:01] VITALS: BP 107/65
--- NOTE | 2016-11-19 00:44 | NUR ---
0000 Vital Signs pt declined Addendum: 11/19/16 at 0045 by DELMY RODARTE RN Amended: Links added.
[2016-11-19 04:00] VITALS: BP 95/65
--- NOTE | 2016-11-19 07:02 | NUR ---
END OF SHIFT NOTE 317 a 31 y/o female admitted for withdrawal from opiates. She is on 4 day Subutex taper, tolerating well. She is on universal precautions. Pt remained compliant with medication regimen and treatment plan. Total intake for the shift is 1457ml, output voided x 3. Last COWS score 1. All safety measures in place per hospital policy. Call light within reach. Side rails up x2, bed locked and in low position. Pt is in stable condition.
--- NOTE | 2016-11-19 07:09 | NUR ---
Start of Shift Endorsement received from nightshift nurse. Pt is a 31 y/o female admitted for Heroin dependence. Pt has been placed on a 4 day Subutex taper. Pt is tolerating the taper and mildly withdrawing AEB COWS 1 at 0400. Pt did not receive any PRN medications. Pt reports sleeping 8 hours. Pt presents with VS WNL. Pt will be completing her subutex taper today. Pt will be educated on S/E of withdrawals and symptoms and her treatment plan when the taper is complete. Full Code. PT is alert and oriented x4. Pt is in STABLE condition at this time. Remains compliant with medication and diet regimen. All needs have been met, All safety measures in place per hospital policy. Bed in lowest position, side rails up x2, call-light within reach. Will continue to monitor
[2016-11-19 08:00] VITALS: BP 92/60
[2016-11-19] MEDS ORDERED: BUPRENORPHINE HCL 2 MG TAB.SUBL SL SCH (09:00)
[2016-11-19] MEDS: DOCUSATE SODIUM 250 MG CAPSULE PO SCH (09:15)
[2016-11-19] MEDS: FOLIC ACID 1 MG TABLET PO SCH (09:15)
[2016-11-19] MEDS: MULTIVITAMINS,THERAPEUTIC TABLET PO SCH (09:15)
[2016-11-19 12:00] VITALS: BP 115/61
[2016-11-19 15:52] LABS: *AMPHETAMINE, URINE NEGATIVE (NEGATIVE); *BARBITURATE, URINE NEGATIVE (NEGATIVE); *CANNABINOID, URINE POSITIVE (NEGATIVE); *COCCAINE, URINE NEGATIVE (NEGATIVE); *OPIATE, URINE POSITIVE (NEGATIVE); *PHENCYCLIDINE SCREEN,URINE NEGATIVE (NEGATIVE)
[2016-11-19 16:00] VITALS: BP 94/65
--- NOTE | 2016-11-19 19:22 | NUR ---
End of Shift Endorsement given to nightshift nurse. Pt is a 31 y/o female admitted for Heroin dependence. Pt has been placed on a 4 day Subutex taper. Pt is tolerating the taper and moderately withdrawing AEB COWS 2 at 1600. Pt did not receive any PRN medications. Pt participated in groups and activities. PT has completed her taper and has been scheduled to be discharged on 11/20/16. Pt has been educated on discharge process and all discharge documentation has been completed. Encouraged pt to develop coping mechanisms to help prevent future relapse. Intake: 2183ml, Void x2, BM x0. Full Code. PT is alert and oriented x4. Pt is in STABLE condition at this time. Remains compliant with medication and diet regimen. All needs have been met, All safety measures in place per hospital policy. Bed in lowest position, side rails up x2, call-light within reach. Will continue to monitor
--- NOTE | 2016-11-19 19:30 | NUR ---
START OF SHIFT Pt is a 31 y/o female admitted for Heroin dependence. Pt has completed 4 day Subutex taper and is scheduled for DC in the morning.Per report, Pt has been educated on discharge process and all discharge documentation has been completed. PT is alert and oriented x4,received in STABLE condition.Pt has been compliant with medication and diet regimen. All needs have been met, All safety measures in place per hospital policy. Bed in lowest position, side rails up x2, call-light within reach. Will continue to monitor
[2016-11-19 20:00] VITALS: BP 99/62
[2016-11-19] MEDS ORDERED: HYDR-3895 PO (20:28)
[2016-11-19] MEDS ORDERED: CLON0.1T14 PO (20:28)
[2016-11-19] MEDS ORDERED: DICY20TA28 PO (20:28)
[2016-11-19] MEDS ORDERED: Ibuprofen PO (20:28)
[2016-11-19] MEDS ORDERED: METH-406 PO (20:29)
--- NOTE | 2016-11-20 | NUR ---
V/S REFUSED/COWS DEFERRED Pt sleeping comfortably in bed.Pt had requested earlier not to be woken up for v/s if she is sleeping,COWS deferred due to Pt being asleep.No s/s of distress noted,will be monitored for safety.
--- NOTE | 2016-11-20 06:41 | NUR ---
END OF SHIFT Pt is a 31 y/o female admitted for Heroin dependence. Pt has completed 4 day Subutex taper and is scheduled for DC this morning.Pt has been educated on discharge process and all discharge documentation has been completed. PT is alert and oriented x4.Pt has been compliant with medication and diet regimen.No PRN meds given last night,Pt slept 6 hrs,fluid intake was 855 mls,voided x 2.Pt is in stable condition,no c/o pain or distress noted. All needs have been met, All safety measures in place per hospital policy. Bed in lowest position, side rails up x2, call-light within reach. Will continue to monitor
--- NOTE | 2016-11-20 07:05 | NUR ---
Start of shift note SBAR report rcv'd. Pt was admitted for opiate dependence. Pt denies any PMHx. Denies any allergies. Is a full code, on a regular diet. Pt completed a 4 day subutex taper without any ASE. Pt states that she feels ready for discharge. Pt has no complaints at this time. Will continue to monitor pt. All needs addressed at this time.
[2016-11-20 08:00] VITALS: BP 97/50
[2016-11-20] MEDS: MULTIVITAMINS,THERAPEUTIC TABLET PO SCH (08:53)
[2016-11-20] MEDS: FOLIC ACID 1 MG TABLET PO SCH (08:53)
--- NOTE | 2016-11-20 09:15 | NUR ---
Discharge note Pt was admitted for opiate dependence. Pt has a recent COWS of 1. VS are WNL. Pt has no complaints at this time. Pt states that she feels ready for discharge. Pt verbalized her understanding of the discharge instructions. Pt discharge instructions, prescriptions, valuables and all belongings returned to pt. Pt ID band removed, pt ambulated off of unit with [facility], left facility via [facility] for [facility].
== END 2016-11-20 09:15 | disposition home or self-care (01) | DRG 895 ==
LOC: SRC 11:36
PROVIDERS: ADMIT Internal Medicine; ATTEND Internal Medicine
PROC: HZ2ZZZZ Detoxification Services for Substance Abuse Treatment (ICD-10-PCS; principal; 2016-11-15)
PROC: HZ41ZZZ Group Counseling for Substance Abuse Treatment, Behavioral (ICD-10-PCS; 2016-11-17)
DX: F11.23 Opioid dependence with withdrawal (principal); F17.210 Nicotine dependence, cigarettes, uncomplicated; F15.23 Other stimulant dependence with withdrawal; F12.90 Cannabis use, unspecified, uncomplicated
CPT/HCPCS: 36415; 70030-TC; 80307; 80324; 80349; 80361; 83735; 84703; 85025; 86580; 86592; 86705; 86803; 87340; 87806; G0480

== ENCOUNTER 2023-07-21 15:58 | Emergency (ER) | payer BC, OTHER ==
[~2023-07-21 15:58] MED LIST changes: +DICY20TA2 PO; -DICY20TA28 PO; -Gabapentin PO; -METH-33 PO; +METH-406 PO
== END 2023-07-21 16:00 | disposition left against medical advice (07) ==
LOC: ER 15:58
DX: Z13.89 Encounter for screening for other disorder (principal); Z53.21 Procedure and treatment not carried out due to patient leaving prior to being seen by health care provider